=== PATIENT | female | born 1955 | race Caucasian/White ===

== ENCOUNTER → 2016-06-10 | Outpatient (CLI) | payer OTHER ==
--- NOTE | 2016-06-11 11:29 | MM ---
Reason for exam: screening (asymptomatic). Last mammogram was performed 1 year ago. History: Patient is postmenopausal, has history of endometrial cancer at age 17, and is nulliparous. Taking estrogen for 6 months beginning at age 49. Physical Findings: A clinical breast exam by your physician is recommended on an annual basis and results should be correlated with mammographic findings. MG 3D Screening Mammo W/Cad Bilateral CC and MLO view(s) were taken. Prior study comparison: May 29, 2015, bilateral MG 3d screening mammo w/cad. April 26, 2013, bilateral digital screening mammo w/CAD. There are scattered fibroglandular densities. No significant changes when compared with prior studies. ASSESSMENT: Benign, BI-RAD 2 RECOMMENDATION: Routine screening mammogram of both breasts in 1 year.
== END | disposition home or self-care (01) ==
LOC: RADMAMWWP 08:12
PROVIDERS: ATTEND Pediatrics
DX: Z12.31 Encounter for screening mammogram for malignant neoplasm of breast (principal)
CPT/HCPCS: 77063; G0202

== ENCOUNTER → 2016-06-23 | Outpatient (CLI) | payer OTHER ==
--- NOTE | 2016-06-24 08:37 | BD ---
EXAMINATION TYPE: MG DEXA axial skeleton. DATE OF EXAM: 06/23/2016 7:42 AM COMPARISON: 2013 CLINICAL HISTORY: osteopenia Height: 5'4 Weight: 160 FRAX RISK QUESTIONS: Alcohol (3 or more units per day): no Family History (Parent hip fracture): no Glucocorticoids (More than 3mos): no (Ex: prednisone, prednisolone, methylprednisolone, dexamethasone, and hydrocortisone). History of Fracture in Adulthood: no Secondary Osteoporosis: 1. Type 1 Diabetes: no 2. Hyperthyroidism: no 3. Menopause before 45: no 4. Malnutrition: no 5. Chronic liver disease: no Rheumatoid Arthritis: no Current Tobacco Use: no RISK FACTORS HISTORY OF: Postmenopausal woman: MEDICATIONS: Additional Medications: migraines, depression Additional History: pt s mother took WILLIAM EXAM MEASUREMENTS: Bone mineral densitometry was performed using the [employer] System. Bone mineral density as measured about the Lumbar spine is: ----- L1-L4(G/cm2): 1.531 T Score Values are as follows: ----- L2: 2.3 ----- L3: 3.7 ----- L4: 3.8 ----- L1-L4:2.9 Bone mineral density has: Increased 0.2% since study of: 01/10/2014 Bone mineral density about the R hip (g/cm2): 0.770 Bone mineral density about the L hip (g/cm2): 0.901 T Score values are as follows: -----R Neck: -1.9 -----L Neck: -1.0 -----R Intertrochanter: -1.1 -----L Intertrochanter: -0.5 Bone mineral density has: Decreased -1.2% since study of: 01/10/2014 IMPRESSION: Osteopenia (T Score between -2.5 and -1 as noted by T score values: Rt hip There is slightly increased risk of fracture and the patient may be considered for treatment. Re-Screen 1-2 years. NOTE: T-SCORE=SD OF THE YOUNG ADULT MEAN.
== END | disposition home or self-care (01) ==
LOC: RADBDWWP 07:14
PROVIDERS: ATTEND Obstetrics & Gynecology
DX: M85.851 Other specified disorders of bone density and structure, right thigh (principal)
CPT/HCPCS: 77080

== ENCOUNTER → 2017-08-10 | Outpatient (CLI) | payer BC ==
--- NOTE | 2017-08-11 09:53 | MM ---
Reason for exam: screening (asymptomatic). Last mammogram was performed 1 year and 2 months ago. History: Patient is postmenopausal, has history of endometrial cancer at age 17, and is nulliparous. Taking estrogen for 6 months beginning at age 49. Physical Findings: A clinical breast exam by your physician is recommended on an annual basis and results should be correlated with mammographic findings. MG 3D Screening Mammo W/Cad Bilateral CC and MLO view(s) were taken. Prior study comparison: June 10, 2016, bilateral MG 3d screening mammo w/cad. May 29, 2015, bilateral MG 3d screening mammo w/cad. The breast tissue is heterogeneously dense. This may lower the sensitivity of mammography. There is no discrete abnormality. No significant changes when compared with prior studies. ASSESSMENT: Negative, BI-RAD 1 RECOMMENDATION: Routine screening mammogram of both breasts in 1 year.
== END | disposition home or self-care (01) ==
LOC: RADMAMWWP 08:36
PROVIDERS: ATTEND Pediatrics
DX: Z12.31 Encounter for screening mammogram for malignant neoplasm of breast (principal)
CPT/HCPCS: 77063; 77067

== ENCOUNTER → 2018-05-31 | Outpatient (CLI) | payer BC ==
--- NOTE | 2018-05-31 09:42 | US ---
EXAMINATION TYPE: US kidneys/renal and bladder DATE OF EXAM: 05/31/2018 COMPARISON: CT dated 01/13/2015 and 02/04/2015 CLINICAL HISTORY: N28.1 RENAL CYST. Renal cyst visualized on prior CT, pt also states she had recent outside MRI showing renal cysts EXAM MEASUREMENTS: Right Kidney: 11.7 x 4.6 x 4.8 cm Left Kidney: 10.3 x 5.7 x 4.8 cm Right Kidney: Cyst with increased through transmission is seen within the upper pole measuring 1.0 x 0.8 x 0.8 cm Left Kidney: Predominantly anechoic lesion with solitary thin septation is seen in the upper pole sharon suring 2.2 x 1.9 x 1.6 cm. On the prior CT of 01/13/2015 this measured approximately 1.2 x 0.9. Additi onal anechoic cyst is seen within the lower pole measuring on the prior CT of 01/13/2015 this measured approximately 1.4 x 1.1 cm. Bladder: wnl Bilateral Jets seen: Yes There is no evidence for hydronephrosis at this point in time. No nephrolithiasis is seen. No The u rinary bladder is anechoic. Bilateral ureteral jets are seen. IMPRESSION: Bilateral renal cysts. Although 2 of the cysts appear entirely benign and the additional largest cyst appears only minimally complex and likely benign six-month follow-up ultrasound is recommended to en sure stability as there has been increase in size from 1.2 cm in 2014 to 2.2 cm on the current exam i n addition to internal thin septations.
== END | disposition home or self-care (01) ==
LOC: RADUSWWP 08:52
PROVIDERS: ATTEND Pediatrics
DX: N28.1 Cyst of kidney, acquired (principal)
CPT/HCPCS: 76770

== ENCOUNTER → 2018-10-19 | Outpatient (CLI) | payer BC ==
--- NOTE | 2018-10-21 07:56 | MM ---
Reason for exam: screening (asymptomatic). Last mammogram was performed 1 year and 2 months ago. History: Patient is postmenopausal, has history of endometrial cancer at age 17, and is nulliparous. Took estrogen for 6 months beginning at age 49. Physical Findings: A clinical breast exam by your physician is recommended on an annual basis and results should be correlated with mammographic findings. MG 3D Screening Mammo W/Cad Bilateral CC and MLO view(s) were taken. Prior study comparison: August 10, 2017, bilateral MG 3d screening mammo w/cad. June 10, 2016, bilateral MG 3d screening mammo w/cad. The breast tissue is heterogeneously dense. This may lower the sensitivity of mammography. Benign appearing bilateral calcifications. No significant changes when compared with prior studies. ASSESSMENT: Benign, BI-RAD 2 RECOMMENDATION: Routine screening mammogram of both breasts in 1 year.
== END | disposition home or self-care (01) ==
LOC: RADMAMWWP 16:26
PROVIDERS: ATTEND Pediatrics
DX: Z12.31 Encounter for screening mammogram for malignant neoplasm of breast (principal)
CPT/HCPCS: 77063; 77067

== ENCOUNTER 2018-12-31 21:13 | Emergency (ER) | payer BC ==
[2018-12-31 21:17] VITALS: RESP 18
[2018-12-31] MEDS ORDERED: SODIUM CHLORIDE 0.9% 1,000 ML IV STA (21:44)
[2018-12-31] MEDS ORDERED: KETOROLAC 30 MG/ML 1 ML VIAL IVP STA (21:44)
--- NOTE | 2018-12-31 22:01 | ED ---
General Adult HPI - General Chief complaint: Abdominal Pain Stated complaint: Flank pain Time Seen by Provider: 12/31/18 21:17 Source: patient, RN notes reviewed Mode of arrival: ambulatory Limitations: no limitations - History of Present Illness Initial comments: 63-year-old female with a past medical history of migraines, asthma presents to the emergency department for a chief complaint of left flank and side pain. This is been ongoing all day today. Patient states it is a sharp pain exacerbated by movement and standing. States pressing on her side worsens the pain as well. Denies pain radiating into her abdomen. Patient states that about a week ago she had similar pain that lasted for about a day and went away. However she is concerned that the pain is not going away this time. Denies any history of kidney stones. Denies hematuria or dysuria. States she had a spinal nerve ablation Wednesday but had no pain after until this time and it is not in the same area. She does not believe this to be related as she had similar pain before the ablation. Patient has no other complaints at this time including shortness of breath, chest pain, abdominal pain, nausea or vomiting, headache, or visual changes. - Related Data Home Medications Medication Instructions Recorded Confirmed Escitalopram Oxalate [Lexapro] 10 mg PO DAILY 01/13/15 02/09/17 Topiramate [Topamax] 60 mg PO HS 01/13/15 02/09/17 L.acidoph,Paracasei, B.lactis 1 each PO DAILY 04/08/15 02/09/17 [Probiotic] Loratadine [Claritin] 10 mg PO DAILY 04/08/15 02/09/17 buPROPion XL [Wellbutrin Xl] 150 mg PO DAILY 04/08/15 02/09/17 Allergies Allergy/AdvReac Type Severity Reaction Status Date / Time No Known Allergies Allergy Verified 12/31/18 21:17 Review of Systems ROS Statement: Those systems with pertinent positive or pertinent negative responses have been documented in the HPI. ROS Other: All systems not noted in ROS Statement are negative. Past Medical History Past Medical History: Asthma, Osteoarthritis (OA) Additional Past Medical History / Comment(s): Migraines. ASTHMA IN PAST. History of Any Multi-Drug Resistant Organisms: None Reported Past Surgical History: Ablation Additional Past Surgical History / Comment(s): COLONOSCOPY Past Anesthesia/Blood Transfusion Reactions: No Reported Reaction Past Psychological History: Depression Smoking Status: Never smoker Past Alcohol Use History: Occasional Past Drug Use History: None Reported - Past Family History Mother Family Medical History: Cancer General Exam Limitations: no limitations General appearance: alert, in no apparent distress Head exam: Present: atraumatic, normocephalic, normal inspection Eye exam: Present: normal appearance, PERRL, EOMI. Absent: scleral icterus, conjunctival injection, periorbital swelling ENT exam: Present: normal exam, mucous membranes moist Neck exam: Present: normal inspection, full ROM. Absent: tenderness, meningismus, lymphadenopathy Respiratory exam: Present: normal lung sounds bilaterally. Absent: respiratory distress, wheezes, rales, rhonchi, stridor Cardiovascular Exam: Present: regular rate, normal rhythm, normal heart sounds. Absent: systolic murmur, diastolic murmur, rubs, gallop, clicks GI/Abdominal exam: Present: soft, normal bowel sounds. Absent: distended, tenderness, guarding, rebound, rigid Back exam: Present: other (Tenderness noted to patient's left side as well as minimal tenderness noted to the left flank. No CVA tenderness. No contusions or ecchymosis.). Absent: CVA tenderness (L) Course Vital Signs 12/31/18 21:14 Temperature 97.6 F Pulse Rate 64 Respiratory 18 Rate Blood Pressure 111/54 O2 Sat by Pulse 100 Oximetry Medical Decision Making - Medical Decision Making Patient was evaluated. HPI and physical exam as documented. Physical exam pertinent for tenderness to the left flank and left side. No abdominal tenderness. No contusions or ecchymosis. CBC was unremarkable. Patient did have evidence of dehydration with an elevated BUN to creatinine ratio and was given fluids. Urinalysis unremarkable as well. [address] abdomen and pelvis performed without contrast was ordered to evaluate for kidney stone. There is slight fullness of the left and right renal pelvis which appear increased compared to old scan. No ureteral calculus seen. This could relate to recently passed stone or nonopaque stone with partial obstruction. Patient's pain is controlled at this time. Discussed that pain could be more musculoskeletal in nature as this worsens with movement. Discussed that it may be related to a small kidney stone or recently passed kidney stone as well. Patient will be given pain medication for home and will monitor herself. If she is having worsening symptoms she will return. However otherwise she will follow up with primary care for possible urology referral. - Lab Data Result diagrams: 12/31/18 22:00 12/31/18 22:00 Lab Results 12/31/18 12/31/18 12/31/18 Range/Units 22:00 22:00 22:00 WBC 9.9 (3.8-10.6) k/uL RBC 3.77 L (3.80-5.40) m/uL Hgb 11.9 (11.4-16.0) gm/dL Hct 36.3 (34.0-46.0) % MCV 96.2 (80.0-100.0) fL MCH 31.4 (25.0-35.0) pg MCHC 32.7 (31.0-37.0) g/dL RDW 12.9 (11.5-15.5) % Plt Count 397 (150-450) k/uL Neutrophils % 77 % Lymphocytes % 14 % Monocytes % 5 % Eosinophils % 1 % Basophils % 0 % Neutrophils # 7.6 (1.3-7.7) k/uL Lymphocytes # 1.4 (1.0-4.8) k/uL Monocytes # 0.5 (0-1.0) k/uL Eosinophils # 0.1 (0-0.7) k/uL Basophils # 0.0 (0-0.2) k/uL Manual Slide Review Performed Sodium 136 L (137-145) mmol/L Potassium 4.3 (3.5-5.1) mmol/L Chloride 102 (98-107) mmol/L Carbon Dioxide 24 (22-30) mmol/L Anion Gap 10 mmol/L BUN 28 H (7-17) mg/dL Creatinine 0.92 (0.52-1.04) mg/dL Est GFR (CKD-EPI)AfAm 77 (>60 ml/min/1.73 sqM) Est GFR (CKD-EPI)NonAf 67 (>60 ml/min/1.73 sqM) Glucose 113 H (74-99) mg/dL Calcium 10.2 (8.4-10.2) mg/dL Total Bilirubin 0.3 (0.2-1.3) mg/dL AST 28 (14-36) U/L ALT 28 (9-52) U/L Alkaline Phosphatase 74 (38-126) U/L Total Protein 8.0 (6.3-8.2) g/dL Albumin 4.5 (3.5-5.0) g/dL Amylase 66 (30-110) U/L Lipase 138 (23-300) U/L Urine Color Yellow Urine Appearance Clear (Clear) Urine pH 5.5 (5.0-8.0) Ur Specific [place] 1.025 (1.001-1.035) Urine Protein Trace H (Negative) Urine Glucose (UA) Negative (Negative) Urine Ketones Negative (Negative) Urine Blood Negative (Negative) Urine Nitrite Negative (Negative) Urine Bilirubin Negative (Negative) Urine Urobilinogen 3.0 (<2.0) mg/dL Ur Leukocyte Esterase Moderate H (Negative) Urine RBC 3 (0-5) /hpf Urine WBC 2 (0-5) /hpf Ur Squamous Epith Cells 1 (0-4) /hpf Urine Bacteria Rare H (None) /hpf Hyaline Casts 355 H (0-2) /lpf Urine Mucus Many H (None) /hpf Disposition Clinical Impression: Left flank pain Disposition: HOME SELF-CARE Condition: Good Instructions (If sedation given, give patient instructions): Flank Pain (ED) Additional Instructions: Please take Motrin for pain. If pain is severe take Tylenol 3. Follow up with primary care in 1-2 days for possible urology referral. If you're having worsening symptoms or symptoms are not resolving return to the emergency department. Is patient prescribed a controlled substance at d/c from ED?: No Referrals: Rex Syed MD [Primary Care Provider] - 1-2 days Time of Disposition: 23:32
[2018-12-31 22:09] LABS: Basophils % (A) 0 %; Eosinophils # (A) 0.1 k/uL (0-0.7); Eosinophils % (A) 1 %; HCT 36.3 % (34.0-46.0); HGB 11.9 gm/dL (11.4-16.0); Lymphocytes # (A) 1.4 k/uL (1.0-4.8); Lymphocytes % (A) 14 %; MCH 31.4 pg (25.0-35.0); MCHC 32.7 g/dL (31.0-37.0); MCV 96.2 fL (80.0-100.0); Mean Platelet Volume 5.2; Monocytes # (A) 0.5 k/uL (0-1.0); Monocytes % (A) 5 %; Neutrophils # (A) 7.6 k/uL (1.3-7.7); Neutrophils % (A) 77 %; Platelet Count 397 k/uL (150-450); RBC 3.77 m/uL (3.80-5.40); RDW 12.9 % (11.5-15.5); WBC 9.9 k/uL (3.8-10.6)
[2018-12-31 22:15] LABS: Albumin 4.5 g/dL (3.5-5.0); Calcium 10.2 mg/dL (8.4-10.2); Potassium 4.3 mmol/L (3.5-5.1); Total Bilirubin 0.3 mg/dL (0.2-1.3)
[2018-12-31 22:41] LABS: Appearance,Urine Clear (Clear); Bacteria,Urine Rare /hpf; Bilirubin,Urine Negative (Negative); Blood,Urine Negative (Negative); Color,Urine Yellow; Glucose,Urine (UA) Negative (Negative); Hyaline Casts,Urine 355 /lpf (0-2); Ketones,Urine Negative (Negative); Leukocyte Esterase,Urine Moderate (Negative); Mucus,Urine Many /hpf; Nitrite,Urine Negative (Negative); PH, Urine 5.5 (5.0-8.0); Protein,Urine Trace (Negative); RBC,Urine 3 /hpf (0-5); Specific Gravity,Urine 1.025 (1.001-1.035); Squamous Epithelial Cell,Urine 1 /hpf (0-4); WBC,Urine 2 /hpf (0-5)
--- NOTE | 2018-12-31 23:05 | CT ---
EXAMINATION TYPE: CT abdomen pelvis wo con DATE OF EXAM: 12/31/2018 COMPARISON: 02/04/2015 HISTORY: Patient presents with left sided flank pain. CT DLP: 533.6 mGycm Automated exposure control for dose reduction was used. TECHNIQUE: Helical acquisition of images was performed from the lung bases through the pelvis. FINDINGS: Lung bases are clear. There is no pleural effusion. Heart size is normal. There is small hiatal herni a. Liver spleen pancreas gallbladder appear normal. Bile ducts are not dilated. There is no adrenal mass. Kidneys have normal size. No renal calculus is seen. There is 2 cm cyst pos terior left kidney. There is 2 cm cyst lateral left kidney. There is mild fullness of the left and ri ght renal pelvis. Ureters are not dilated. There are a few phleboliths in the pelvis. Uterus is antev erted. There is no free fluid in the pelvis. There is no inguinal hernia. Appendix appears normal. There is no mesenteric edema. There is no ascites or free air. There is no s ign of a bowel obstruction. Lumbar spine is intact. There is degenerative disc space narrowing throug hout the lumbar spine with multilevel vacuum disc and spur formation. IMPRESSION: There is slight fullness of the left and right renal pelvis which appear increased compared to old CT scan. No ureteral calculus seen. This could relate to recently passed stone or nonopaque stone with partial obstruction. Normal appendix.
[2018-12-31] MEDS ORDERED: ACET/COD 300 MG/30 MG STARTER PACK 6 TAB BTL PO STA (23:33)
[2018-12-31 23:52] VITALS: BP 113/71; PULSE 68; TEMP 98.1
== END 2018-12-31 23:52 | disposition home or self-care (01) ==
LOC: EC 21:13
DX: R10.9 Unspecified abdominal pain (principal); E86.0 Dehydration; R79.89 Other specified abnormal findings of blood chemistry; G40.909 Epilepsy, unspecified, not intractable, without status epilepticus; M19.90 Unspecified osteoarthritis, unspecified site; F32.9 Major depressive disorder, single episode, unspecified; Z79.899 Other long term (current) drug therapy
CPT/HCPCS: 36415; 80053; 82150; 83690; 85025; 81001; 87086; 74176; 99284; 96374; 96361 ×2; J1885

== ENCOUNTER 2019-01-16 22:13 | Emergency (ER) | payer BC ==
[2019-01-16] MEDS ORDERED: MORPHINE SULFATE 4 MG/ML SYRINGE IV STA (22:55)
[2019-01-16 23:26] LABS: Basophils % (A) 0 %; Eosinophils # (A) 0.1 k/uL (0-0.7); Eosinophils % (A) 1 %; HCT 40.1 % (34.0-46.0); HGB 13.3 gm/dL (11.4-16.0); Lymphocytes # (A) 0.6 k/uL (1.0-4.8); Lymphocytes % (A) 4 %; MCH 32.3 pg (25.0-35.0); MCHC 33.2 g/dL (31.0-37.0); MCV 97.2 fL (80.0-100.0); Mean Platelet Volume 5.2; Monocytes # (A) 0.5 k/uL (0-1.0); Monocytes % (A) 4 %; Neutrophils # (A) 12.4 k/uL (1.3-7.7); Neutrophils % (A) 91 %; Platelet Count 347 k/uL (150-450); RBC 4.13 m/uL (3.80-5.40); RDW 13.2 % (11.5-15.5); WBC 13.7 k/uL (3.8-10.6)
[2019-01-16 23:27] LABS: Appearance,Urine Clear (Clear); Bilirubin,Urine Negative (Negative); Blood,Urine Trace (Negative); Color,Urine Yellow; Glucose,Urine (UA) Negative (Negative); Hyaline Casts,Urine 9 /lpf (0-2); Ketones,Urine 1+ (Negative); Leukocyte Esterase,Urine Negative (Negative); Mucus,Urine Few /hpf; Nitrite,Urine Negative (Negative); PH, Urine 5.5 (5.0-8.0); Protein,Urine Trace (Negative); RBC,Urine 1 /hpf (0-5); Squamous Epithelial Cell,Urine <1 /hpf (0-4); Urobilinogen,Urine <2.0 mg/dL (<2.0); WBC,Urine 1 /hpf (0-5)
--- NOTE | 2019-01-16 23:37 | XR ---
EXAMINATION TYPE: XR KUB DATE OF EXAM: 01/16/2019 COMPARISON: NONE HISTORY: Abdominal pain TECHNIQUE: 2 views FINDINGS: There is no sign of intestinal obstruction or pneumoperitoneum. Fecal pattern is normal. Th ere are no pathologic calcifications. Lung bases are clear. There are mild spondylotic changes in the lumbar spine. IMPRESSION: Nonacute abdomen.
[2019-01-16 23:38] LABS: ALT 24 U/L (9-52); AST 26 U/L (14-36); African American GFR (CKD) 89 (>60 ml/min/1.73 sqM); Albumin 4.3 g/dL (3.5-5.0); Alkaline Phosphatase 90 U/L (38-126); Amylase 97 U/L (30-110); Anion Gap 9 mmol/L; Blood Urea Nitrogen 23 mg/dL (7-17); C Reactive Protein <5.0 mg/L (<10.0); Calcium 9.7 mg/dL (8.4-10.2); Carbon Dioxide 24 mmol/L (22-30); Chloride 104 mmol/L (98-107); Glucose 135 mg/dL (74-99); Potassium 3.8 mmol/L (3.5-5.1); Sodium 137 mmol/L (137-145); Total Bilirubin 0.5 mg/dL (0.2-1.3); Total Protein 7.4 g/dL (6.3-8.2)
[2019-01-17 00:23] VITALS: RESP 16
[2019-01-17] MEDS ORDERED: IOPAMIDOL CONTRAST (ORAL USE) VIAL PO PRN (00:37)
[2019-01-17] MEDS ORDERED: MORPHINE SULFATE 4 MG/ML SYRINGE IV STA (00:37)
--- NOTE | 2019-01-17 02:56 | CT ---
EXAMINATION TYPE: CT abdomen pelvis w con DATE OF EXAM: 01/17/2019 COMPARISON: 12/31/2018 HISTORY: Patient presents with lower abdominal pain CT DLP: 893.7 mGycm Automated exposure control for dose reduction was used. TECHNIQUE: Helical acquisition of images was performed from the lung bases through the pelvis. CONTRAST: Performed with Oral Contrast and with IV Contrast, patient injected with 100mL mL of Isovue 300. FINDINGS: Lung bases are clear. There is no pleural effusion. Heart size is normal. There is no pericardial eff usion. Liver spleen pancreas gallbladder appear normal. Bile ducts are not dilated. Stomach is intact. There is no adrenal mass. There are bilateral cortical cysts in the kidneys that measure up to 2 cm. There is no retroperitoneal adenopathy. Appendix appears normal. Ureters are not dilated. Bladder dis tends smoothly. There is no inguinal hernia. There is no free fluid in the pelvis. Uterus is antevert ed. There is no evidence of a pelvic mass. I see no bony destructive process. There is multilevel mil d spondylotic change in the lumbar spine. Facet joints are intact. There is no mesenteric edema. There is no ascites or free air. There is no sign of a bowel obstructio n. IMPRESSION: NEGATIVE CT SCAN ABDOMEN AND PELVIS. NO ADVERSE CHANGE COMPARED TO LAST EXAM. LEFT AND RIGHT RENAL PE LVIS APPEARS SMALLER THAN LAST EXAM. NORMAL APPENDIX.
--- NOTE | 2019-01-17 03:07 | ED ---
Abdominal Pain HPI - General Chief Complaint: Abdominal Pain Stated Complaint: Abd Pain Time Seen by Provider: 01/16/19 22:33 Source: patient Mode of arrival: ambulatory Limitations: no limitations - History of Present Illness Initial Comments: This patient is 63-year-old woman who presents to be evaluated for left lower quadrant and suprapubic cramping that has been going on the past few hours. The patient states that prior to this she had been having nearly 2 weeks of left flank pain that was similar in nature. She states that seems to have migrated to the left lower abdomen. She was seen in the emergency department here, had a workup and the cause the pain was not found. She states that they felt that it was musculoskeletal. The patient followed up with her physician and then also saw her orthopedic doctor, who treated her for possible musculoskeletal cause of the pain. She states that it didn't really get better despite the treatment. This evening she has felt frequent urge to have a bowel movement. She states that on one of those times she was forcing at having a bowel movement and then did pass a small amount of blood. Patient has not had any other gastrointestinal symptoms. No nausea or vomiting. She has not had any change in urination. MD Complaint: abdominal pain -: hour(s) Location: LLQ, suprapubic Radiation: none Severity: severe Quality: cramping Consistency: intermittent Improves With: nothing Worsens With: bowel movement Associated Symptoms: melena - Related Data Home Medications Medication Instructions Recorded Confirmed Escitalopram Oxalate [Lexapro] 10 mg PO DAILY 01/13/15 02/09/17 Topiramate [Topamax] 60 mg PO HS 01/13/15 02/09/17 L.acidoph,Paracasei, B.lactis 1 each PO DAILY 04/08/15 02/09/17 [Probiotic] Loratadine [Claritin] 10 mg PO DAILY 04/08/15 02/09/17 buPROPion XL [Wellbutrin Xl] 150 mg PO DAILY 04/08/15 02/09/17 Previous Rx's Medication Instructions Recorded Dicyclomine [Bentyl] 20 mg PO QID #15 tablet 01/17/19 Famotidine [Pepcid] 20 mg PO BID #14 tablet 01/17/19 Allergies Allergy/AdvReac Type Severity Reaction Status Date / Time No Known Allergies Allergy Verified 01/16/19 22:25 Review of Systems ROS Statement: Those systems with pertinent positive or pertinent negative responses have been documented in the HPI. ROS Other: All systems not noted in ROS Statement are negative. Constitutional: Denies: fever, chills Respiratory: Denies: cough, dyspnea Cardiovascular: Denies: chest pain, palpitations, edema Gastrointestinal: Reports: as per HPI, abdominal pain, melena. Denies: nausea, vomiting, diarrhea, hematochezia Genitourinary: Denies: dysuria, frequency, hematuria Musculoskeletal: Denies: back pain Skin: Denies: rash Neurological: Denies: headache Hematological/Lymphatic: Denies: easy bleeding Past Medical History Past Medical History: Asthma, Osteoarthritis (OA) Additional Past Medical History / Comment(s): Migraines. ASTHMA IN PAST. History of Any Multi-Drug Resistant Organisms: None Reported Past Surgical History: Ablation Additional Past Surgical History / Comment(s): COLONOSCOPY Past Anesthesia/Blood Transfusion Reactions: No Reported Reaction Past Psychological History: Depression Smoking Status: Never smoker Past Alcohol Use History: Occasional Past Drug Use History: None Reported - Past Family History Mother Family Medical History: Cancer General Exam Limitations: no limitations General appearance: alert, in no apparent distress Head exam: Present: atraumatic, normocephalic Eye exam: Present: normal appearance ENT exam: Present: normal oropharynx Neck exam: Present: normal inspection Respiratory exam: Present: normal lung sounds bilaterally. Absent: respiratory distress, wheezes, rales, rhonchi, stridor Cardiovascular Exam: Present: regular rate, normal rhythm, normal heart sounds. Absent: systolic murmur, diastolic murmur, rubs, gallop GI/Abdominal exam: Present: soft, tenderness (Mild left lower quadrant tenderness without rebound or guarding), normal bowel sounds. Absent: distended, guarding, rebound, rigid, mass, pulsatile mass, hernia Extremities exam: Present: normal inspection, normal capillary refill. Absent: pedal edema, calf tenderness Back exam: Present: normal inspection. Absent: CVA tenderness (R), CVA tenderness (L), paraspinal tenderness, vertebral tenderness Neurological exam: Present: alert Skin exam: Present: warm, dry, intact, normal color. Absent: rash Course Vital Signs 01/16/19 01/17/19 01/17/19 22:23 00:18 03:22 Temperature 98.0 F 99.3 F 97.8 F Pulse Rate 99 63 82 Respiratory 20 16 16 Rate Blood Pressure 122/73 116/80 143/97 O2 Sat by Pulse 99 100 99 Oximetry Medical Decision Making - Medical Decision Making Patient is 63-year-old woman with low abdominal cramping and having passed small amount of blood after straining to have bowel movement. Patient's workup does reveal some mild leukocytosis and comparison with her previous visit. We discussed risks and benefits associated with a repeat computed tomography scan and she does request to have this. The computed tomography scan does not reveal etiology of the pain or bleeding at this point. The patient is also feeling better following analgesic. We will provide some symptomatic treatment and have the patient follow with GI for possible colonoscopy. Discussed return paramete rs and appropriate follow-up. - Lab Data Result diagrams: 01/16/19 23:04 01/16/19 23:04 Lab Results 01/16/19 01/16/19 01/16/19 Range/Units 23:04 23:04 23:04 WBC 13.7 H (3.8-10.6) k/uL RBC 4.13 (3.80-5.40) m/uL Hgb 13.3 (11.4-16.0) gm/dL Hct 40.1 (34.0-46.0) % MCV 97.2 (80.0-100.0) fL MCH 32.3 (25.0-35.0) pg MCHC 33.2 (31.0-37.0) g/dL RDW 13.2 (11.5-15.5) % Plt Count 347 (150-450) k/uL Neutrophils % 91 % Lymphocytes % 4 % Monocytes % 4 % Eosinophils % 1 % Basophils % 0 % Neutrophils # 12.4 H (1.3-7.7) k/uL Lymphocytes # 0.6 L (1.0-4.8) k/uL Monocytes # 0.5 (0-1.0) k/uL Eosinophils # 0.1 (0-0.7) k/uL Basophils # 0.0 (0-0.2) k/uL Sodium 137 (137-145) mmol/L Potassium 3.8 (3.5-5.1) mmol/L Chloride 104 (98-107) mmol/L Carbon Dioxide 24 (22-30) mmol/L Anion Gap 9 mmol/L BUN 23 H (7-17) mg/dL Creatinine 0.82 (0.52-1.04) mg/dL Est GFR (CKD-EPI)AfAm 89 (>60 ml/min/1.73 sqM) Est GFR (CKD-EPI)NonAf 77 (>60 ml/min/1.73 sqM) Glucose 135 H (74-99) mg/dL Calcium 9.7 (8.4-10.2) mg/dL Total Bilirubin 0.5 (0.2-1.3) mg/dL AST 26 (14-36) U/L ALT 24 (9-52) U/L Alkaline Phosphatase 90 (38-126) U/L C-Reactive Protein <5.0 (<10.0) mg/L Total Protein 7.4 (6.3-8.2) g/dL Albumin 4.3 (3.5-5.0) g/dL Amylase 97 (30-110) U/L Lipase 64 (23-300) U/L Urine Color Yellow Urine Appearance Clear (Clear) Urine pH 5.5 (5.0-8.0) Ur Specific [place] 1.020 (1.001-1.035) Urine Protein Trace H (Negative) Urine Glucose (UA) Negative (Negative) Urine Ketones 1+ H (Negative) Urine Blood Trace H (Negative) Urine Nitrite Negative (Negative) Urine Bilirubin Negative (Negative) Urine Urobilinogen <2.0 (<2.0) mg/dL Ur Leukocyte Esterase Negative (Negative) Urine RBC 1 (0-5) /hpf Urine WBC 1 (0-5) /hpf Ur Squamous Epith Cells <1 (0-4) /hpf Hyaline Casts 9 H (0-2) /lpf Urine Mucus Few H (None) /hpf Disposition Clinical Impression: Abdominal pain Disposition: HOME SELF-CARE Condition: Fair Instructions (If sedation given, give patient instructions): Abdominal Pain (ED) Prescriptions: Dicyclomine [Bentyl] 20 mg PO QID #15 tablet Famotidine [Pepcid] 20 mg PO BID #14 tablet Is patient prescribed a controlled substance at d/c from ED?: No Referrals: Rex Syed MD [Primary Care Provider] - 1-2 days Jamie Trevizo MD [STAFF PHYSICIAN] - 1-2 days
[2019-01-17 03:22] VITALS: BP 143/97; PULSE 82; TEMP 97.8
== END 2019-01-17 03:55 | disposition home or self-care (01) ==
LOC: EC 22:13
DX: R10.32 Left lower quadrant pain (principal); D72.829 Elevated white blood cell count, unspecified; K92.1 Melena; F32.9 Major depressive disorder, single episode, unspecified; Z79.899 Other long term (current) drug therapy; Z86.69 Personal history of other diseases of the nervous system and sense organs
CPT/HCPCS: 36415; 80053; 82150; 83690; 85025; 86140; 81001; 74018; 74177; 99284; 96374; 96376; J2270 ×2; Q9967

== ENCOUNTER → 2019-04-27 | Outpatient (CLI) | payer BC ==
[2019-04-27 12:08] LABS: HCT 35.1 % (34.0-46.0); HGB 11.3 gm/dL (11.4-16.0); MCH 32.2 pg (25.0-35.0); MCHC 32.2 g/dL (31.0-37.0); MCV 100.1 fL (80.0-100.0); Mean Platelet Volume 6.7; Platelet Count 325 k/uL (150-450); RDW 13.3 % (11.5-15.5); WBC 5.7 k/uL (3.8-10.6)
[2019-04-27 15:58] LABS: African American GFR (CKD) 78.9 (60.0-200.0); Anion Gap 8.1 mmol/L (4.00-12.00); Carbon Dioxide 28.9 mmol/L (21.6-31.8); Potassium 4.3 mmol/L (3.5-5.5)
== END | disposition home or self-care (01) ==
LOC: LABWHC1 11:03
PROVIDERS: ATTEND Internal Medicine Cardiovascular Disease
DX: R06.02 Shortness of breath (principal)
CPT/HCPCS: 36415; 80051; 82565; 84443; 84520; 85027; 85379

== ENCOUNTER → 2019-08-10 | Outpatient (CLI) | payer BC ==
--- NOTE | 2019-08-10 11:47 | XR ---
EXAMINATION TYPE: XR chest 2V DATE OF EXAM: 08/10/2019 COMPARISON: 07/10/2019 TECHNIQUE: PA and lateral views submitted. HISTORY: Pain FINDINGS: The lungs are clear and there is no pneumothorax, pleural effusion, or focal pneumonia. No overt fa ilure. Heart size normal. Hypertrophic and degenerative change of the spine. IMPRESSION: 1. No acute process.
== END | disposition home or self-care (01) ==
LOC: RADXRMAIN 10:41
PROVIDERS: ATTEND Physician Assistant
DX: R05 Cough (principal)
CPT/HCPCS: 71046

== ENCOUNTER → 2020-01-02 | Outpatient (CLI) | payer BC ==
--- NOTE | 2020-01-02 18:59 | XR ---
EXAMINATION TYPE: XR knee complete LT DATE OF EXAM: 01/02/2020 CLINICAL HISTORY: Left knee pain from fall TECHNIQUE: Three views of the left knee are obtained. COMPARISON: None. FINDINGS: There is no acute fracture/dislocation evident in left knee. There is tricompartmental deg enerative spurring. No suprapatellar joint effusion. The overlying soft tissue appears unremarkable. IMPRESSION: There is no acute fracture or dislocation in the left knee.
--- NOTE | 2020-01-02 19:00 | XR ---
EXAMINATION TYPE: XR elbow complete LT DATE OF EXAM: 01/02/2020 CLINICAL HISTORY: Left elbow pain after fall TECHNIQUE: Frontal, lateral and oblique images of the left elbow are obtained. COMPARISON: None FINDINGS: There is no acute fracture/dislocation evident in the left elbow. No abnormal fat pad sig ns are seen. The overlying soft tissue appears unremarkable. IMPRESSION: There is no acute fracture or dislocation in the left elbow.
== END | disposition home or self-care (01) ==
LOC: RADXRMAIN 14:04
PROVIDERS: ATTEND Pediatrics
DX: M25.522 Pain in left elbow (principal); M25.562 Pain in left knee

== ENCOUNTER → 2020-01-24 | Outpatient (CLI) | payer BC ==
--- NOTE | 2020-01-24 11:57 | US ---
EXAMINATION TYPE: US carotid duplex BILAT DATE OF EXAM: 01/24/2020 COMPARISON: NONE CLINICAL HISTORY: R55 Syncope. Syncope EXAM MEASUREMENTS: RIGHT: Peak Systolic Velocity (PSV) cm/sec ----- Right CCA: 80.9 ----- Right ICA: 94.1 ----- Right ECA: 90.3 ICA/CCA ratio: 1.2 RIGHT: End Diastole cm/sec ----- Right CCA: 24.8 ----- Right ICA: 41.3 ----- Right ECA: 13.7 LEFT: Peak Systolic Velocity (PSV) cm/sec ----- Left CCA: 78.5 ----- Left ICA: 75.8 ----- Left ECA: 86.1 ICA/CCA ratio: 1.0 LEFT: End Diastole cm/sec ----- Left CCA: 23.0 ----- Left ICA: 31.3 ----- Left ECA: 17.3 VERTEBRALS (direction of flow): Right Vertebral: Antegrade Left Vertebral: Antegrade Rhythm: Normal Bilateral intimal thickening, minimal plaque bilateral bulbs, no elevated velocities, no significant stenosis. Grayscale, color Doppler, spectral Doppler imaging performed of the carotid arteries. Wave form analysis does not show significant stenosis of the internal carotid arteries. IMPRESSION: No hemodynamic significant stenosis of the proximal internal carotid arteries by Doppler criteria, an indirect measurement of carotid stenosis Criteria for Assigning % of Stenosis / Diameter reduction (Estimation based on the indirect measurements of the internal carotid artery velocities (ICA PSV). 1. Normal (no stenosis)=ICA PSV < 125 cm/s: ratio < 2.0: ICA EDV<40 cm/s. 2. Less than 50% stenosis=ICA PSV < 125 cm/s: ratio < 2.0: ICA EDV<40 cm/s. 3. 50 to 69% stenosis=ICA PSV of 125 to 230 cm/s: ration 2.0 ? 4.0: ICA EDV 40-100 cm/s. 4. Greater than 70% stenosis to near occlusion= ICA PSV > 230 cm/s: ratio > 4.0: ICA EDV > 100 cm/s. 5. Near occlusion= ICA PSV velocities may be low or undetectable: variable ratio and ICA EDV. 6. Total occlusion=unable to detect flow.
--- NOTE | 2020-01-31 14:48 | CE ---
HOLTER MONITOR INDICATION: Cardiac arrhythmia. The patient was monitored for 24 hours. The baseline rhythm appeared to be sinus mechanism with a minimum heart rate of 52 and max heart rate 125 and average heart rate of 70 beats per minute. Ventricular ectopic events presented in less than 1% of the total beats count. Supraventricular ectopic events presented in less than 1% of the total beats count. No evidence of any advanced AV block seen. The patient did have multiple short episodes of what seems to be atrial tachycardia. CONCLUSION: 1. Sinus rhythm as a baseline mechanism. 2. Rare ventricular ectopic events. 3. The patient did have multiple short episodes of atrial tachycardia. 4. No evidence of sinus pause or sinus arrest. 5. The patient reported no symptoms. MMODL / IJN: [id number] / [facility]
--- NOTE | 2020-02-05 08:11 | HM ---
HOLTER MONITOR INDICATION: Cardiac arrhythmia. The patient was monitored for 24 hours. The baseline rhythm appeared to be sinus mechanism with a minimum heart rate of 52 and max heart rate 125 and average heart rate of 70 beats per minute. Ventricular ectopic events presented in less than 1% of the total beats count. Supraventricular ectopic events presented in less than 1% of the total beats count. No evidence of any advanced AV block seen. The patient did have multiple short episodes of what seems to be atrial tachycardia. CONCLUSION: 1. Sinus rhythm as a baseline mechanism. 2. Rare ventricular ectopic events. 3. The patient did have multiple short episodes of atrial tachycardia. 4. No evidence of sinus pause or sinus arrest. 5. The patient reported no symptoms. MMODL / IJN: [id number] / [facility]
== END | disposition home or self-care (01) ==
LOC: RADECHMAIN 10:36
PROVIDERS: ATTEND Pediatrics
DX: R55 Syncope and collapse (principal); I47.1 Supraventricular tachycardia
CPT/HCPCS: 93225; 93226; 93880

== ENCOUNTER → 2020-06-24 | Outpatient (CLI) | payer BC ==
--- NOTE | 2020-06-24 17:27 | XR ---
EXAMINATION TYPE: XR chest 2V DATE OF EXAM: 06/24/2020 COMPARISON: Chest x-ray 08/10/2019 HISTORY: R06.02, shortness of breath TECHNIQUE: Frontal and lateral views of the chest are obtained. FINDINGS: There is no focal air space opacity, pleural effusion, or pneumothorax seen. The cardiac silhouette size is within normal limits. The osseous structures are intact. IMPRESSION: No acute cardiopulmonary process.
== END | disposition home or self-care (01) ==
LOC: RADXRMAIN 15:47
PROVIDERS: ATTEND Pediatrics
DX: R06.02 Shortness of breath (principal)
CPT/HCPCS: 71046

== ENCOUNTER → 2021-05-16 | Outpatient (CLI) | payer MEDICARE, OTHER ==
--- NOTE | 2021-05-19 11:02 | MM ---
Reason for exam: screening (asymptomatic). Last mammogram was performed 2 years and 7 months ago. History: Patient is postmenopausal, has history of endometrial cancer at age 17, and is nulliparous. Took estrogen for 6 months beginning at age 49. Physical Findings: A clinical breast exam by your physician is recommended on an annual basis and results should be correlated with mammographic findings. MG 3D Screening Mammo W/Cad Bilateral CC and MLO view(s) were taken. Prior study comparison: October 19, 2018, bilateral MG 3d screening mammo w/cad. August 10, 2017, bilateral MG 3d screening mammo w/cad. The breast tissue is heterogeneously dense. This may lower the sensitivity of mammography. There is no discrete abnormality. No significant changes when compared with prior studies. ASSESSMENT: Negative, BI-RAD 1 RECOMMENDATION: Routine screening mammogram of both breasts in 1 year.
== END | disposition home or self-care (01) ==
LOC: RADMAMWWP 10:20
PROVIDERS: ATTEND Pediatrics
DX: Z12.31 Encounter for screening mammogram for malignant neoplasm of breast (principal); Z78.0 Asymptomatic menopausal state
CPT/HCPCS: 77063; 77067

== ENCOUNTER → 2022-05-25 | Outpatient (CLI) | payer MEDICARE, OTHER ==
--- NOTE | 2022-05-25 11:27 | XR ---
EXAMINATION TYPE: XR Hip Bilateral Complete DATE OF EXAM: 05/25/2022 COMPARISON: NONE HISTORY: Pain TECHNIQUE: 2 views submitted FINDINGS: There is no evidence of erosive change or acute fracture. There is mild concentric narrowing of the h ip joint bilaterally with hypertrophic changes of the acetabulum. Vascular calcifications in the pelv is. SI joints are symmetric. IMPRESSION: 1. 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
--- NOTE | 2022-05-25 11:29 | XR ---
EXAMINATION TYPE: XR knee complete bilateral DATE OF EXAM: 05/25/2022 COMPARISON: 01/02/2020 HISTORY: Pain TECHNIQUE: Three views are submitted. FINDINGS: Mild narrowing of the medial compartment of knee joint with hypertrophic spurring bilaterally. More a dvanced hypertrophic arthropathy of the patellofemoral joint. No acute fracture or dislocation. Small suprapatellar bursal fluid collection bilaterally. IMPRESSION: 1. Mild osteoarthritis medial compartment of the knee joint bilaterally with more advanced arthropath y of the bilateral patellofemoral joint including small suprapatellar bursal fluid collections.
--- NOTE | 2022-05-25 11:31 | XR ---
EXAM TYPE: LUMBAR SPINE X RAY SERIES COMPARISON: NONE HISTORY: Pain TECHNIQUE: 4 views are submitted. FINDINGS: Alignment is anatomic. The pedicles are intact. The transverse processes are intact. There is no s pondylolysis or spondylolisthesis. There is severe degenerative disc disease at all levels with felicita re facet arthropathy and multilevel foraminal encroachment. Curvature of the spine noted. SI joints s ymmetric. IMPRESSION: 1. Severe multilevel degenerative disc disease and facet arthropathy with multilevel foraminal encroa chment..
== END | disposition home or self-care (01) ==
LOC: RADXRMAIN 10:35
PROVIDERS: ATTEND Pediatrics
DX: M16.0 Bilateral primary osteoarthritis of hip (principal); M17.0 Bilateral primary osteoarthritis of knee; M51.36 Other intervertebral disc degeneration, lumbar region; M47.816 Spondylosis without myelopathy or radiculopathy, lumbar region; M99.73 Connective tissue and disc stenosis of intervertebral foramina of lumbar region; Z68.26 Body mass index [BMI] 26.0-26.9, adult
CPT/HCPCS: 72110; 73521

== ENCOUNTER → 2023-03-16 | Outpatient (CLI) | payer MEDICARE, OTHER ==
--- NOTE | 2023-03-16 18:07 | MM ---
Reason for Exam: Screening (asymptomatic). Last mammogram was performed 1 year(s) and 10 month(s) ago. Patient History: Menarche at age 15. Patient has no children. Postmenopausal. Endometrial cancer, age 17. Estrogen for 6 months starting at age 49. Risk Values: Joann 5 year model risk: 1.7%. NCI Lifetime model risk: 5.9%. Prior Study Comparison: 08/10/2017 Bilateral Screening Mammogram, [facility]. 10/19/2018 Bilateral Screening Mammogram, [facility]. 05/16/2021 Bilateral Screening Mammogram, [facility]. Tissue Density: The breast tissue is heterogeneously dense. This may lower the sensitivity of mammography. Findings: Analyzed By CAD. There is no suspicious group of microcalcifications or new suspicious mass in either breast. Overall Assessment: Negative, BI-RAD 1 Management: Screening Mammogram of both breasts in 1 year. . Patient should continue monthly self-breast exams. A clinical breast exam by your physician is recommended on an annual basis. This exam should not preclude additional follow-up of suspicious palpable abnormalities. Note on Joann scores and lifetime risk: 1. A Joann score greater than 3% is considered moderate risk. If this is the case, consider specialist referral to assess eligibility for a risk reducing agent. 2. If overall lifetime risk for the development of breast cancer is 20% or higher, the patient may qualify for future screening with alternating mammogram and breast MRI. Electronically signed and approved by: Cynthia Lunsford M.D. Radiologist
== END | disposition home or self-care (01) ==
LOC: RADMAMWWP 07:22
PROVIDERS: ATTEND Pediatrics
DX: Z12.31 Encounter for screening mammogram for malignant neoplasm of breast (principal); Z78.0 Asymptomatic menopausal state
CPT/HCPCS: 77063; 77067

== ENCOUNTER → 2023-06-21 | Outpatient (CLI) | payer MEDICARE, OTHER ==
--- NOTE | 2023-06-21 13:07 | XR ---
EXAMINATION TYPE: XR hand complete RT, XR wrist complete RT DATE OF EXAM: 06/21/2023 12:27 PM CLINICAL INDICATION:Female, 68 years old with history of M79.641 R hand pain; [facility] COMPARISON: None TECHNIQUE: XR hand complete RT, XR wrist complete RT Frontal, lateral and oblique views were obtained . FINDINGS: No acute osseous pathology is identified. No evidence of soft tissue swelling. Multifocal degeneration changes throughout the joints of the hand most pronounced at the distal interphalangeal joints of the second and third digit of the right hand. Degeneration also at the first digit carpomet acarpal joint. IMPRESSION: 1. No acute osseous pathology. 2. Moderate to severe degeneration scattered throughout the joints worse at the first digit carpomet acarpal in the second and third digits distal interphalangeal joints.
== END | disposition home or self-care (01) ==
LOC: RADXRMAIN 12:02
PROVIDERS: ATTEND Pediatrics
DX: M79.641 Pain in right hand (principal); M25.531 Pain in right wrist